=== PATIENT | male | born 1955 | race Caucasian/White ===

== ENCOUNTER 2019-01-17 07:08 | Outpatient (CLI) | payer BC | END 2019-01-17 07:09 | disposition home or self-care (01) | LOC: LAB 07:08 | PROVIDERS: ATTEND Nurse Practitioner Family | DX: I48.92 Unspecified atrial flutter (principal) | CPT/HCPCS: 36415; 80053; 80061; 83721; 84443; 85025 ==

== ENCOUNTER 2021-06-20 14:36 | Outpatient (CLI) | payer BC | END 2021-06-20 14:37 | disposition home or self-care (01) | LOC: LAB 14:36 | DX: Z01.812 Encounter for preprocedural laboratory examination (principal); C25.9 Malignant neoplasm of pancreas, unspecified; R17 Unspecified jaundice; Z20.822 Contact with and (suspected) exposure to COVID-19 ==

== ENCOUNTER 2021-06-28 15:12 | Outpatient (CLI) | payer MEDICARE ==
[2021-06-28 15:23] LABS: BILIRUBIN,DIRECT 2.4 mg/dL (0.1-0.5); BILIRUBIN,INDIRECT 2.5 mg/dL; BILIRUBIN,TOTAL 4.9 mg/dL (0.2-1.0)
== END 2021-06-28 15:13 | disposition home or self-care (01) ==
LOC: LAB 15:12
PROVIDERS: ATTEND Internal Medicine Hematology & Oncology
DX: C25.9 Malignant neoplasm of pancreas, unspecified (principal)
CPT/HCPCS: 36415; 82247; 82248